=== PATIENT | female | born 1995 | race Hispanic/Latino ===

== ENCOUNTER 2023-05-21 02:07 | Emergency (ER) | payer OTHER, SELFPAY ==
[2023-05-21 02:09] VITALS: BP 151/95
--- NOTE | 2023-05-21 02:44 | ED.GENMED ---
History of Present Illness
<YOGI Abreu - Last Filed: 05/21/23 03:45>
General
Chief Complaint: Skin Problem
Source: patient
Exam Limitations: none
Time Seen by Provider: 05/21/23 02:43
Travel History
Have you had any contact with someone who has COVID-19?: No
Do you have any symptoms of coronavirus? Fever > 100 degrees, chills, cough, shortness of breath, sore throat, loss of taste or smell, muscle aches, or headache?: No
History of Present Illness
History of Present Illness:
28 y/o F presents for itching x 1 month. She reports itching in her anal area that has now spread to her vagina. She reports the itching is severe and often causes burning. The itching stops her from sleeping at night. She has seen multiple
providers for her problem without relief. Patient went to PCP who gave prep H without relief. She saw her OBGYN and was given steroid cream but states it is not helping because she was not able to apply to the areas that are itchy. Patient also saw
urgent care yestreday and was given an ointment. She is unsure what ointment but states she was not able to pick it up yet.
Past History
<YOGI Abreu - Last Filed: 05/21/23 03:45>
Past History
ED Past Medical History: Hypothyroidism
ED Past Surgical History: (Tubal)
Social History
Tobacco: Non-smoker
Alcohol: None
Drug: None
Personal:
Living: with family
Employment: Employed
Family History
Family History: Other (2 children spouse with similar symptoms recently)
Review of Systems
<YOGI Abreu - Last Filed: 05/21/23 03:45>
Review of Systems
Allergies reviewed?: Yes
Constitutional: Reports no symptoms
EENT: Reports no symptoms
Respiratory: Reports no symptoms
Cardiac: Reports no symptoms
ABD/GI: Reports no symptoms
: Reports no symptoms
Musculoskeletal: Reports no symptoms
Skin: Reports itching
Neurological: Reports no symptoms
Endocrine: Reports no symptoms
Hematologic/Lymphatic: Reports no symptoms
Psychiatric: Reports no symptoms
Phy Exam
<YOGI Abreu - Last Filed: 05/21/23 03:45>
General Physical Exam
General Presentation: well appearing and no apparent distress
General age: appears stated age
General Skin: warm and dry
General Habitus: normal
General Mental: alert
General Hydration: appears well hydrated
Cardiovascular Exam
Cardiovascular Exam: regular rate/rhythm and no edema
Pulmonary Exam
Pulmonary Exam: lungs clear and no respiratory distress
Genitourinary Exam Female
Exam Female: no lesions
Vaginal Exam: other (pink inflammation around labia and anus )
Vaginal Bleeding: none
Course
<YOGI Abreu - Last Filed: 05/21/23 03:45>
Orders/Labs/Results
Orders:
Orders
05/21/23 03:45
Nystatin Ointment [Mycostatin Ointment] See Dose Instructions TOPICAL NOW STA
Vital Signs
Initial and Last Documented VS:
Initial Vital Signs
Temp Pulse Resp BP Pulse Ox
98.0 F 94 18 151/95 100
05/21/23 02:09 05/21/23 02:09 05/21/23 02:09 05/21/23 02:09 05/21/23 02:09
Last Documented Vital Signs
Temp Pulse Resp BP Pulse Ox
98.0 F 73 15 112/72 98
05/21/23 02:09 05/21/23 04:00 05/21/23 04:00 05/21/23 04:00 05/21/23 04:00
<Cale Mondragon DO - Last Filed: 05/21/23 06:42>
Orders/Labs/Results
Orders:
Orders
05/21/23 03:45
Nystatin Ointment [Mycostatin Ointment] See Dose Instructions TOPICAL NOW STA
Vital Signs
Initial and Last Documented VS:
Initial Vital Signs
Temp Pulse Resp BP Pulse Ox
98.0 F 94 18 151/95 100
05/21/23 02:09 05/21/23 02:09 05/21/23 02:09 05/21/23 02:09 05/21/23 02:09
Last Documented Vital Signs
Temp Pulse Resp BP Pulse Ox
98.0 F 73 15 112/72 98
05/21/23 02:09 05/21/23 04:00 05/21/23 04:00 05/21/23 04:00 05/21/23 04:00
<Cale Mondragon DO - Last Filed: 05/21/23 06:42>
*Critical Care Note
Total Time (30-74mins, 75-104mins- exclusive of procedures): Not Applicable
ED Attending Note
<YOGI Abreu - Last Filed: 05/21/23 03:45>
-
Portions of this chart may have been created with voice recognition software.� Occasional wrong word or��sound alike� substitutions may have occurred due to the inherent limitations of voice recognition software.
<Cale Mondragon DO - Last Filed: 05/21/23 06:42>
ED Attending Note
Patient seen and examined by attending physician: Yes
I performed the substantive portion of visit, reviewed & personally made and approve the management plan that is documented in note by myself or ALEX.: Yes
ED Attending Note:
Pleasant 28-year-old female who presents with a rash on her buttocks and vagina. She states that it is extremely pruritic and tonight she was unable to sleep so she came into the emergency department. She has been seen by her family doctor or her
[employer], and urgent care. She was prescribed steroids, and Preparation H. She has minimal relief. Denies fever, chills, nausea or vomiting. Denies the possibility of any STD. Denies vaginal bleeding or discharge. Patient was prescribed
mupirocin, but has not picked it up yet. Patient was seen in conjunction with the PA student. I have reviewed and agree with the history and treatment plan presented. On my independent physical exam, patient is awake, alert, and oriented x3,
minimal acute distress. No respiratory distress noted. No abdominal pain. Focused physical exam peritoneal region: Performed in the presence of female nursing. There appears to be an erythematous fungal type rash in her perineum. At this point
she will get a prescription for antifungal cream.
Discharge Plan
Departure
Patient Disposition: Home (Routine Discharge)
Date of Disposition: 05/21/23
Time of Disposition: 03:49
Patient with high blood pressure during this ER visit?: Yes
Discharge Problem:
Greer infection
Instructions: Skin Rash (DC), Fungal Skin Rash (DC), BLOOD PRESSURE
Prescriptions:
No Action
levothyroxine 125 MCG tablet
100 mcg PO DAILY
acetaminophen 325 MG tablet
650 mg PO Q4HPRN PRN (Reason: mild pain) 0RF
ibuprofen 600 MG tablet
600 mg PO Q4HPRN PRN (Reason: cramps) 0RF
prednisone 10 mg Tablet
See Rx Instructions .ROUTE .COMPLEX Qty: 30 0RF
Rx Instructions:
Take By Mouth:
40 mg daily x3 days, 30 mg daily x3 days,
20 mg daily x3 days, 10 mg daily x3 days.
prednisone 10 mg Tablet
See Rx Instructions .ROUTE .COMPLEX Qty: 45 0RF
Rx Instructions:
Take By Mouth:
50 mg daily x3 days, 40 mg daily x3 days,
30 mg daily x3 days, 20 mg daily x3 days,
10 mg daily x3 days
ondansetron 4 mg tablet,disintegrating
4 mg PO TID PRN (Reason: nausea and vomiting) 4 Days Qty: 12 0RF
Activity Restrictions/Additional Instructions:
Please apply the nystatin cream twice a day to the affected area for 5 days
It was a pleasure meeting you and taking part in your care. We hope for your continued healing and wellness.
Please read discharge instructions in their entirety. However, they are for general education and may not describe your exact diagnosis at discharge. Information on your ER visit and medical conditions were discussed with you along with appropriate
follow up information...
If indicated, please take your medications as instructed and indicated on discharge paperwork.
Please schedule a follow up appointment as directed. Call to schedule an appointment
Please return to the emergency department with ANY change in, persisting, or worsening of symptoms. If any of your symptoms do not improve, or persist, or become more severe within 6-12 hours, please return to the emergency department for further
care.
Please return to the emergency department if you develop a headache, neck pain/stiffness, fever greater than 100.4F, chest pain, shortness of breath, persistent nausea, vomiting, slurred speech, difficulty walking, numbness/tingling, weakness, signs
of infection or any other symptoms that are worrisome to you.
If you have any questions or concerns please do not hesitate to call the Hospital at or E-mail me directly at [email or web address]
Interventions
Interventions:
*Risk Screen - Suicide Last Done: 05/21/23 02:09
*General Assessment Last Done: 05/21/23 02:09
*Neglect/Abuse Screening Last Done: 05/21/23 02:09
ED- Fall Risk Assessment Last Done: 05/21/23 02:09
*ED COVID-19 Vaccine History Last Done: 05/21/23 02:09
*Nursing Disposition Last Done: 05/21/23 04:10
ED-Skin Assessment Last Done: 05/21/23 04:21
Discharge Date and Time
Discharge Date/Time: 05/21/23 04:10
[2023-05-21 04:00] VITALS: BP 112/72
[2023-05-21] MEDS: MYCOSTATIN OINTMENT 1 APPLIC TOPICAL (04:08)
== END 2023-05-21 04:10 | disposition home or self-care (01) ==
LOC: EMR 02:07
PROVIDERS: EMERGENCY PHYSICIAN Student in an Organized Health Care Education/Training Program; FAMILY PHYSICIAN Nurse Practitioner Family
DX: B37.9 Candidiasis, unspecified (principal); R03.0 Elevated blood-pressure reading, without diagnosis of hypertension
CPT/HCPCS: 99283

== ENCOUNTER 2024-12-25 19:33 | Emergency (ER) | payer OTHER, SELFPAY ==
[2024-12-25 19:39] VITALS: BP 149/104
[2024-12-25 22:14] VITALS: BMI 38.2
[2024-12-25 22:17] VITALS: BP 120/83
--- NOTE | 2024-12-25 22:48 | ED.GENMED ---
History of Present Illness
General
Chief Complaint: Throat Problem
Source: patient
Exam Limitations: none
Time Seen by Provider: 12/25/24 22:23
Nursing documentation reviewed up to this point in time: agreed with
History of Present Illness
History of Present Illness:
The patient is a 29-year-old female presenting with a sore throat that started five days ago on a Friday. The sore throat is persistent throughout the day, with exacerbation in the morning and evening. She describes the sensation as discomfort upon
swallowing. The patient also reports a headache, but primarily concerns the throat soreness. She denies any fever. There is mention of the weather affecting her symptoms, with chilly mornings and hot afternoons coinciding with the onset of school
for her two children. She has not smoked and denies smoking history.
She also notes mild nasal congestion. She has not had a cough. No shortness of breath, no chest pain. She has been taking Tylenol as well as ibuprofen with improvement in symptoms.
She has history of hypothyroidism, maintained on levothyroxine.
Denies risk of , last menstrual period normal and on time 2 weeks ago.
Past History
Past History
ED Past Medical History: Hypothyroidism
ED Past Surgical History: (Tubal)
Social History
Tobacco: Non-smoker
Alcohol: None
Drug: None
Personal:
Living: with family
Employment: Employed
Family History
Family History: Other (Noncontributory)
Phy Exam
Physical Exam
Physical Exam:
GENERAL: 29-year-old female appears her stated age, bright and alert, pleasant, appears in no acute distress.
EYE: pupils equal and reactive. anicteric
NECK: Supple, nontender, no meningismus, no significant adenopathy.
ENT: posterior pharynx is very minimally injected without exudate nor edema nor ulceration. There is note of mild pearly postnasal drip. Oral mucosa is moist. TM clear b/l, nares have mildly boggy pale blue turbinates.
CARDIAC: Regular rate and rhythm. no murmur. No rub.
LUNGS: Clear breath sounds bilaterally, no acute respiratory distress, no wheezes/rales/rhonchi
ABDOMEN: Soft, nondistended, without focal tenderness, normoactive BS.
NEUROLOGICAL: Alert and oriented x3, no focal neuro deficits. Gait is irving and steady.
SKIN: Warm and dry, normal color, skin intact. No rash.
MUSCULOSKELETAL: No C/C/E. peripheral pulses are full and equal b/l. No palpable tenderness.
PSYCH: Normal and appropriate interaction.
Course
Orders/Labs/Results
Orders:
Orders
12/25/24 22:12
Rapid Strep Group A Urgent
RUPA Source: Throat/Pharynx
Specimen Description:
Date Specimen was Collected: 12/25/24
Time Specimen was Collected: 20:44
12/25/24 22:47
Cetirizine HCl [Zyrtec] 10 mg PO NOW STA
Prednisone [Deltasone] 50 mg PO NOW STA
Vital Signs
Initial and Last Documented VS:
Initial Vital Signs
Temp Pulse Resp BP Pulse Ox
97.9 F 90 16 149/104 99
12/25/24 19:39 12/25/24 19:39 12/25/24 19:39 12/25/24 19:39 12/25/24 19:39
Last Documented Vital Signs
Temp Pulse Resp BP Pulse Ox
97.9 F 90 16 120/83 99
12/25/24 19:39 12/25/24 19:39 12/25/24 19:39 12/25/24 22:17 12/25/24 22:49
MDM/Problems Addressed
Differential Diagnosis Includes:
The Differential Diagnosis includes, in no particular order and is not limited to:
1. Viral Pharyngitis
2. Allergic Rhinitis
3. Post-nasal Drip
4. Bacterial Pharyngitis
5. Gastroesophageal Reflux Disease (GERD)
6. Thyroiditis
7. Sinusitis
8. Laryngitis
9. Mononucleosis
10. Upper Respiratory Tract Infection
MDM/Problems Addressed:
- Acute: Sore throat, headache.
Overall well in appearance. Afebrile.
Exam is fairly benign with note of postnasal drip and boggy pale turbinates consistent with allergic rhinitis.
Concern for potential strep pharyngitis thus rapid strep obtained which is negative.
Complains of intermittent frontal headache but overall well in appearance. No red flags in history nor exam. No meningismus.
No history of immunocompromise nor lung disease. No indication for imaging.
Will plan to treat allergic rhinitis which I suspect is seasonal in nature with a course of Zyrtec and Flonase and will add a short course of prednisone.
Recommend continuing with Tylenol versus ibuprofen for headache.
Discussed importance of staying well-hydrated on a daily basis.
Prompt follow-up with PCP for recheck.
Return precautions discussed.
*Pulse Oximetry
SaO2: 99
Oxygen Mode of Delivery: Room air
Patient hypoxic: no
*Critical Care Note
Total Time (30-74mins, 75-104mins- exclusive of procedures): Not Applicable
ED Attending Note
-
Portions of this chart may have been created with voice recognition software.� Occasional wrong word or��sound alike� substitutions may have occurred due to the inherent limitations of voice recognition software.
Discharge Plan
Departure
Patient Disposition: Home (Routine Discharge)
Date of Disposition: 12/25/24
Time of Disposition: 22:48
Patient with high blood pressure during this ER visit?: No
Condition: Good
Discharge Problem:
Acute allergic rhinitis, Sinus headache, Acute sore throat
Instructions: Sinusitis in adults, Seasonal allergies - ED (DC)
Prescriptions:
New
prednisone 20 mg tablet
40 mg PO DAILY Qty: 10 0RF
Zyrtec 10 mg capsule
10 mg PO DAILY Qty: 30 1RF
fluticasone propionate [24 Hour Allergy Relief] 50 mcg/actuation spray,suspension
2 spray intranasal DAILY Qty: 16 1RF
Rx Instructions:
2 sprays each nostril once daily
No Action
levothyroxine 125 MCG tablet
100 mcg PO DAILY
acetaminophen 325 MG tablet
650 mg PO Q4HPRN PRN (Reason: mild pain) 0RF
ibuprofen 600 MG tablet
600 mg PO Q4HPRN PRN (Reason: cramps) 0RF
prednisone 10 mg Tablet
See Rx Instructions .ROUTE .COMPLEX Qty: 30 0RF
Rx Instructions:
Take By Mouth:
40 mg daily x3 days, 30 mg daily x3 days,
20 mg daily x3 days, 10 mg daily x3 days.
prednisone 10 mg Tablet
See Rx Instructions .ROUTE .COMPLEX Qty: 45 0RF
Rx Instructions:
Take By Mouth:
50 mg daily x3 days, 40 mg daily x3 days,
30 mg daily x3 days, 20 mg daily x3 days,
10 mg daily x3 days
ondansetron 4 mg tablet,disintegrating
4 mg PO TID PRN (Reason: nausea and vomiting) 4 Days Qty: 12 0RF
Referrals:
Shabnam Lopez CRNP [Primary Care Provider] - Call in 1-3 days for appt
Interventions
Interventions:
*Risk Screen - Suicide Last Done: 12/25/24 22:14
*General Assessment Last Done: 12/25/24 22:14
*Neglect/Abuse Screening Last Done: 12/25/24 22:14
*ED- Fall Risk Assessment Last Done: 12/25/24 22:14
*ED COVID-19 Vaccine History Last Done: 12/25/24 22:14
*Nursing Disposition Last Done: 12/25/24 22:57
ED-EENT Assessment Last Done: 12/25/24 22:22
ED- Pulmonary Assessment Last Done: 12/25/24 22:22
Discharge Date and Time
Discharge Date/Time: 12/25/24 22:58
Print Language: CHADIAN
[2024-12-25] MEDS: ZYRTEC 10 MG PO (22:54)
[2024-12-25] MEDS: DELTASONE 50 MG PO (22:54)
== END 2024-12-25 22:58 | disposition home or self-care (01) ==
LOC: EMR 19:33
PROVIDERS: EMERGENCY PHYSICIAN Emergency Medicine; PRIMARYCARE PHYSICIAN Nurse Practitioner Family
DX: J30.9 Allergic rhinitis, unspecified (principal); E03.9 Hypothyroidism, unspecified
CPT/HCPCS: 99283; 87070; 87880